=== PATIENT | male | born 1960 | race Caucasian/White ===

== ENCOUNTER → 2018-01-25 | Outpatient (CLI) | payer BC, OTHER ==
[~2018-01-25] MED LIST: ALBU8.5H8 PO; AMLO10TA6 PO; CARV-39 PO; CYCL-259 PO; DAPA10TA PO; FISH1CAP PO; FLEC50TA25 PO; FLUT9.9S NS; FURO20TA3 PO; HYDR25TA6 PO; IBUP-1223 PO; LOSA100T7 PO; LOVA40TA2 PO; METF10007 PO; MINO10TA PO; MULT1TAB13 PO; OMEP20TA62 PO; OMNIPAQUE 350 MG/ML, 150 ML BOTTLE ONE; PARO20TA4 PO; POTA20TA6 PO; PSYL1CAP5 PO; RIVA20TA PO; RIVAROXABAN 20 MG TABLET ONE
== END | disposition home or self-care (01) ==
LOC: CFH 11:06
PROVIDERS: ATTEND Internal Medicine Cardiovascular Disease
DX: I31.3 Pericardial effusion (noninflammatory) (principal); I51.7 Cardiomegaly
CPT/HCPCS: 71046; 75572; Q9967

== ENCOUNTER 2018-01-28 06:41 | Observation (INO) | payer BC, OTHER ==
[2018-01-25 13:26] VITALS: BP 160/91
[~2018-01-28] VITALS: Ht 188 cm; Wt 153.2 kg
[~2018-01-28 06:41] MED LIST changes: -OMNIPAQUE 350 MG/ML, 150 ML BOTTLE ONE; -RIVAROXABAN 20 MG TABLET ONE
[2018-01-28] MEDS ORDERED: SODIUM CHLORIDE 0.9% 1,000 ML IV SCH (07:02)
[2018-01-28] MEDS ORDERED: MIDAZOLAM 1 MG/ML, 2ML ONE (07:40)
[2018-01-28] MEDS ORDERED: FENTANYL PF 250 MCG/5ML ONE (07:40)
[2018-01-28] MEDS ORDERED: ROCURONIUM 10MG/ML,5ML ONE (07:44)
[2018-01-28] MEDS ORDERED: PROPOFOL 10 MG/ML, 20ML ONE ×2 (07:44)
[2018-01-28] MEDS ORDERED: ONDANSETRON 2MG/ML, 2ML ONE ×2 (07:44)
[2018-01-28] MEDS ORDERED: DEXAMETHASONE 4 MG/ML, 1ML ONE ×2 (07:44)
[2018-01-28] MEDS ORDERED: SUCCINYLCHOLINE 20 MG/ML, 10ML ONE (07:44)
[2018-01-28] MEDS ORDERED: HEPARIN 1,000 UNITS/ML, 10ML ONE ×3 (09:51)
[2018-01-28] MEDS ORDERED: PROTAMINE SULFATE 10 MG/ML, 5ML ONE (10:48)
[2018-01-28] MEDS ORDERED: FENTANYL PF 100 MCG/2ML ONE (10:54)
[2018-01-28] MEDS ORDERED: IBUPROFEN 800 MG TABLET PO PRN (11:00)
[2018-01-28] MEDS ORDERED: ACETAMINOPHEN 325 MG TABLET PO PRN ×2 (11:00→12:00)
[2018-01-28] MEDS ORDERED: ALBUTEROL SULFATE 2.5 MG/3 ML HHN PRN (11:00)
[2018-01-28] MEDS: CALCIUM POLYCARBOPHIL 625 MG TABLET PO SCH ×3 (11:00→21:23)
[2018-01-28] MEDS ORDERED: CYCLOBENZAPRINE 10 MG TABLET PO PRN (11:00)
[2018-01-28] MEDS ORDERED: ONDANSETRON 2MG/ML, 2ML IV PRN (12:00)
[2018-01-28] MEDS ORDERED: FENTANYL PF 100 MCG/2ML IV PRN (12:00)
[2018-01-28] MEDS ORDERED: PROMETHAZINE 25 MG/ML, 1ML IV PRN (12:00)
[2018-01-28] MEDS ORDERED: ONDANSETRON ODT 8 MG PO PRN (12:00)
[2018-01-28] MEDS ORDERED: MORPHINE SULFATE 4 MG/ML, 1ML IVPush PRN (12:00)
[2018-01-28] MEDS ORDERED: EPHEDRINE 50 MG/ML, 1ML IVPush PRN (12:00)
[2018-01-28] MEDS ORDERED: PROMETHAZINE 12.5 MG SUPP PR PRN (12:00)
[2018-01-28] MEDS ORDERED: OXYcodone 5 MG/5 ML ORAL.SOL UDC PO PRN (12:00)
[2018-01-28] MEDS ORDERED: PROMETHAZINE 25 MG SUPP PR PRN (12:00)
[2018-01-28] MEDS ORDERED: EPHEDRINE 50 MG/ML, 1ML IM PRN (12:00)
[2018-01-28] MEDS ORDERED: DIPHENHYDRAMINE 50 MG/ML, 1ML IVPush PRN (12:00)
[2018-01-28] MEDS ORDERED: MIDAZOLAM 1 MG/ML, 2ML IV PRN (12:00)
[2018-01-28] MEDS: RIVAROXABAN 20 MG TABLET PO SCH (13:49)
[2018-01-28] MEDS ORDERED: LOVASTATIN 40 MG TABLET PO SCH (21:00)
[2018-01-28] MEDS: MINOXIDIL 10 MG TABLET PO SCH (21:21)
[2018-01-28] MEDS: metFORMIN 500 MG TABLET PO SCH (21:22)
[2018-01-28] MEDS: FLECAINIDE 50MG TABLET PO SCH (21:23)
[2018-01-28 21:38] VITALS: BP 121/62
[2018-01-29 00:51] VITALS: BP 122/63
[2018-01-29 07:58] VITALS: BP_SYST 112; BP_SYST 125; BP_DIAS 61; BP_DIAS 70
[2018-01-29] MEDS: CALCIUM POLYCARBOPHIL 625 MG TABLET PO SCH (08:46)
[2018-01-29] MEDS: FLECAINIDE 50MG TABLET PO SCH (08:46)
[2018-01-29] MEDS: MINOXIDIL 10 MG TABLET PO SCH (08:46)
[2018-01-29] MEDS: metFORMIN 500 MG TABLET PO SCH (08:47)
[2018-01-29] MEDS: RIVAROXABAN 20 MG TABLET PO SCH (08:48)
[2018-01-29] MEDS ORDERED: CARVEDILOL 12.5 MG TABLET PO SCH (09:00)
[2018-01-29] MEDS ORDERED: TEMPLATE NON-FORMULARY MED. (Dapagliflozin Propanediol (Farxiga) 10 MG) HOMEMEDPO SCH (09:00)
[2018-01-29] MEDS ORDERED: POTASSIUM CHLORIDE 20 MEQ TAB.ER.PRT PO SCH (09:00)
[2018-01-29] MEDS ORDERED: OMEPRAZOLE 20 MG CAPSULE.DR PO SCH (09:00)
[2018-01-29] MEDS ORDERED: AMLODIPINE 10 MG TAB PO SCH (09:00)
[2018-01-29] MEDS ORDERED: FUROSEMIDE 20 MG TABLET PO SCH (09:00)
[2018-01-29] MEDS ORDERED: HYDROCHLOROTHIAZIDE 25 MG TABLET PO SCH (09:00)
[2018-01-29] MEDS ORDERED: LOSARTAN 50MG TABLET PO SCH (09:00)
[2018-01-29] MEDS ORDERED: MULTIVITAMINS/MINERALS TABLET PO SCH (09:00)
[2018-01-29] MEDS ORDERED: FLUTICASONE NASAL SPRAY 16GM NAS SCH (09:00)
[2018-01-29] MEDS ORDERED: PAROXETINE 20 MG TABLET PO SCH (09:00)
== END 2018-01-29 12:24 | disposition home or self-care (01) ==
LOC: CACL 06:41 → ORIP 10:51 → 5SO 13:50
PROVIDERS: ADMIT Internal Medicine Cardiovascular Disease; ATTEND Internal Medicine Cardiovascular Disease
DX: I48.0 Paroxysmal atrial fibrillation (principal); I48.4 Atypical atrial flutter; I10 Essential (primary) hypertension; E78.5 Hyperlipidemia, unspecified; E11.9 Type 2 diabetes mellitus without complications
CPT/HCPCS: 85347; 93306; 93312; 93321; 93325; 93613; 93656; 93662; C1730; C1732; C1759; C1766; C1893; C1894; G0378; J0330; J1100; J1644; J2250; J2405; J2704; J2720; J3010